=== PATIENT | male | born 1965 | race Caucasian/White ===

== ENCOUNTER 2018-07-11 14:44 | Inpatient (IN) | payer OTHER ==
[~2018-07-11] VITALS: Ht 188 cm; Wt 133.5 kg
[2018-07-11] MEDS ORDERED: SODIUM CHLORIDE FLUSH 10ML SYR IVF ONE (15:30)
[2018-07-11] MEDS ORDERED: SODIUM CHLORIDE 0.9% 1,000ML IVBOLUS ONE (15:30)
--- NOTE | 2018-07-11 16:10 | NUR ---
TO ALYSSA VIA [place]
[2018-07-11] MEDS ORDERED: AMLODIPINE PO (16:44)
[2018-07-11] MEDS ORDERED: CLONIDINE PO (16:44)
[2018-07-11] MEDS ORDERED: METOPROLOL PO (16:44)
[2018-07-11] MEDS ORDERED: CELE200C PO (16:44)
[2018-07-11] MEDS ORDERED: LISINOPRIL-HCTZ PO (16:44)
[2018-07-11 16:48] LABS: ALBUMIN 3.6 g/dL (3.4-5.0); ANION GAP 10 mmol/L (5-15); CALCIUM 8.6 mg/dL (8.5-10.1); CHLORIDE 107 mmol/L (98-107); CREATININE 1.22 mg/dL (0.7-1.3)
[2018-07-11 16:51] LABS: TROPONIN I < 0.015 ng/mL (0.000-0.045)
[2018-07-11 17:06] LABS: MEAN CORPUSCULAR HEMOGLOBIN 34.4 pg (27.5-34.5); MEAN CORPUSCULAR HGB CONC 32.4 g/dL (33.2-36.2); MEAN CORPUSCULAR VOLUME 106.3 fL (81-97); MEAN PLATELET VOLUME 10.3 fL (7.4-10.4); PLATELET COUNT 124 x10^3/uL (130-400); RED BLOOD COUNT 4.16 x10^6/uL (4.38-5.82); RED CELL DISTRIBUTION WIDTH 12.5 % (9.4-14.8)
[2018-07-11 17:07] LABS: BASOPHILS # (AUTO) 0.12 x10^3/uL (0-0.1); BASOPHILS % (AUTO) 1 % (0-1); EOSINOPHILS # (AUTO) 0.23 x10^3/uL (0-0.4); EOSINOPHILS % (AUTO) 2 % (1-7); LYMPHOCYTES # (AUTO) 1.51 x10^3/uL (1-3.4); LYMPHOCYTES % (AUTO) 16 % (22-44); MD SCAN; MONOCYTES # (AUTO) 0.69 x10^3/uL (0.2-0.8); MONOCYTES % (AUTO) 7 % (2-9); NEUTROPHILS # (AUTO) 6.95 x10^3/uL (1.8-6.8); NEUTROPHILS % (AUTO) 73 % (42-75)
[2018-07-11] MEDS ORDERED: hydrALAzine 20 MG/ML, 1ML IV PRN (17:30)
--- NOTE | 2018-07-11 17:32 | NUR ---
SBAR TO ABDOUL WALLACE VIA TELEPHONE
[2018-07-11] MEDS ORDERED: BISACODYL 10 MG SUPP PR PRN (18:00)
[2018-07-11] MEDS ORDERED: POLYETHYLENE GLYCOL 17 GM PACKET PO PRN (18:00)
[2018-07-11] MEDS ORDERED: ONDANSETRON 2MG/ML, 2ML IVPush PRN (18:00)
[2018-07-11] MEDS ORDERED: ACETAMINOPHEN 325 MG TABLET PO PRN (18:00)
[2018-07-11 18:16] VITALS: BP 101/54
[2018-07-11 19:01] LABS: INTERNATIONAL NORMALIZED RATIO 1.03 (0.93-1.1); PROTHROMBIN TIME 10.8 Seconds (9.6-11.5)
[2018-07-11] MEDS: SODIUM CHLORIDE FLUSH 10ML SYR IVF SCH (20:33)
[2018-07-11] MEDS: FAMOTIDINE 20 MG/2 ML IVPush SCH (20:33)
[2018-07-12 04:51] LABS: ALANINE AMINOTRANSFERASE 75 U/L (12-78); ALBUMIN 3.7 g/dL (3.4-5.0); ANION GAP 8 mmol/L (5-15); CALCIUM 9.1 mg/dL (8.5-10.1); CHLORIDE 107 mmol/L (98-107); CREATININE 0.84 mg/dL (0.7-1.3)
[2018-07-12 04:53] LABS: ALKALINE PHOSPHATASE 77 U/L (45-117); TOTAL PROTEIN 7.7 g/dL (6.4-8.2)
[2018-07-12 04:56] LABS: MEAN CORPUSCULAR HEMOGLOBIN 35.6 pg (27.5-34.5); MEAN CORPUSCULAR HGB CONC 33.8 g/dL (33.2-36.2); MEAN CORPUSCULAR VOLUME 105.5 fL (81-97); MEAN PLATELET VOLUME 9.4 fL (7.4-10.4); PLATELET COUNT 135 x10^3/uL (130-400); RED CELL DISTRIBUTION WIDTH 13.1 % (9.4-14.8)
[2018-07-12 04:57] LABS: BASOPHILS # (AUTO) 0.06 x10^3/uL (0-0.1); BASOPHILS % (AUTO) 1 % (0-1); EOSINOPHILS # (AUTO) 0.47 x10^3/uL (0-0.4); EOSINOPHILS % (AUTO) 5 % (1-7); LYMPHOCYTES # (AUTO) 2.82 x10^3/uL (1-3.4); LYMPHOCYTES % (AUTO) 33 % (22-44); MD SCAN; MONOCYTES # (AUTO) 0.84 x10^3/uL (0.2-0.8); MONOCYTES % (AUTO) 10 % (2-9); NEUTROPHILS # (AUTO) 4.41 x10^3/uL (1.8-6.8); NEUTROPHILS % (AUTO) 51 % (42-75)
[2018-07-12] MEDS ORDERED: HYDROcodone/APAP 5/325 TABLET ONE (07:13)
[2018-07-12] MEDS: FAMOTIDINE 20 MG/2 ML IVPush SCH (07:16)
[2018-07-12] MEDS: SODIUM CHLORIDE FLUSH 10ML SYR IVF SCH (07:18)
[2018-07-12] MEDS ORDERED: HYDROcodone/APAP 5/325 TABLET PO ONE (07:30)
[2018-07-12] MEDS ORDERED: SENNA/DOCUSATE TABLET PO SCH (09:00)
== END 2018-07-12 10:06 | disposition home or self-care (01) | DRG 86 ==
LOC: ED 16:30 → CCU 17:55
PROVIDERS: ADMIT Internal Medicine; ATTEND Internal Medicine
DX: S06.6X1A Traumatic subarachnoid hemorrhage with loss of consciousness of 30 minutes or less, initial encounter (principal); F10.239 Alcohol dependence with withdrawal, unspecified; D69.6 Thrombocytopenia, unspecified; D75.89 Other specified diseases of blood and blood-forming organs; E86.0 Dehydration; I10 Essential (primary) hypertension; W18.39XA Other fall on same level, initial encounter; Z66 Do not resuscitate; Z72.0 Tobacco use; Z82.5 Family history of asthma and other chronic lower respiratory diseases; Y93.89 Activity, other specified; Y92.89 Other specified places as the place of occurrence of the external cause; Y99.8 Other external cause status
CPT/HCPCS: 36415; 99285; J3490; 70450; 71045; 80048; 80053; 82040; 82607; 84484; 85025; 85610; 85730; 87081; 93005; G0378; J0360

== ENCOUNTER → 2018-07-18 | Outpatient (CLI) | payer OTHER ==
[~2018-07-18] MED LIST: AMLODIPINE PO; CELE200C PO; CLONIDINE PO; LISINOPRIL-HCTZ PO; METOPROLOL PO
== END | disposition home or self-care (01) ==
LOC: RAD 08:39
PROVIDERS: ATTEND Family Medicine
DX: M25.511 Pain in right shoulder (principal); M25.512 Pain in left shoulder

== ENCOUNTER 2019-12-05 16:41 | Emergency (ER) | payer OTHER ==
[~2019-12-05] VITALS: Ht 188 cm; Wt 138.5 kg
[2019-12-05] MEDS ORDERED: DIPH,PERTUSS(ACELL),TET VAC/PF 0.5 ML IM-VACC ONE ×2 (17:30→17:32)
--- NOTE | 2019-12-05 18:39 | NUR ---
dr disla spoke with dr medrano
[2019-12-05] MEDS ORDERED: OXYcodone/APAP 5/325MG TABLET ONE (19:47)
[2019-12-05 20:00] VITALS: BP 125/79
[2019-12-05] MEDS ORDERED: OXYcodone/APAP 5/325MG TABLET PO ONE (20:00)
== END 2019-12-05 20:02 | disposition home or self-care (01) ==
LOC: ED 18:18
DX: S00.01XA Abrasion of scalp, initial encounter (principal); I62.03 Nontraumatic chronic subdural hemorrhage; M54.2 Cervicalgia; I10 Essential (primary) hypertension; Y08.89XA Assault by other specified means, initial encounter; Y93.89 Activity, other specified; Y92.89 Other specified places as the place of occurrence of the external cause; Y99.8 Other external cause status
CPT/HCPCS: 70450; 70486; 90471; 90715; 99285

== ENCOUNTER → 2020-03-22 | Outpatient (CLI) | payer OTHER | END | disposition home or self-care (01) | LOC: CFH 07:52 | PROVIDERS: ATTEND Registered Nurse Registered Nurse First Assistant | DX: S06.5X0D Traumatic subdural hemorrhage without loss of consciousness, subsequent encounter (principal); J34.89 Other specified disorders of nose and nasal sinuses; X58.XXXD Exposure to other specified factors, subsequent encounter | CPT/HCPCS: 70450 ==